=== PATIENT | female | born 1980 | race American Indian/Alaskan Native ===

== ENCOUNTER 2016-08-08 15:31 | Emergency (ER) | payer MEDICAID ==
[2016-08-08 16:23] VITALS: BP 117/73
== END 2016-08-08 17:59 | disposition home or self-care (01) ==
LOC: ED 15:31
DX: H93.8X2 Other specified disorders of left ear (principal)
CPT/HCPCS: 99282

== ENCOUNTER 2017-08-08 17:06 | Emergency (ER) | payer MEDICAID, OTHER ==
[2017-08-08 19:59] LABS: Hematocrit 37.2 % (30.3-42.9); Hemoglobin 11.9 gm/dl (10.1-14.3); Mean Corpuscular HGB Conc 32 % (30-34); Mean Corpuscular Hemoglobin 28 pg (28-32); Mean Corpuscular Volume 87 fl (79-97); Red Cell Distribution Width 16.7 % (13.2-15.2)
[2017-08-08 20:17] LABS: Platelet Count 208 K/mm3 (140-440)
[2017-08-08 21:32] LABS: Platelet Estimate Consistent w Auto; Total Cells Counted 100
[2017-08-08 23:14] LABS: Bilirubin,Urine NEG (Negative); Blood,Urine LG (Negative); Color,Urine Yellow (Yellow); Mucus,Urine 2+ /HPF; Protein,Urine <15 mg/dL mg/dL (Negative)
--- NOTE | 2017-08-08 23:55 | Ultrasound Report ---
FINAL REPORT PROCEDURE: US OB TRANSVAGINAL TECHNIQUE: Real-time transabdominal and transvaginal sonography of the uterus, placenta, amniotic fluid, adnexa, and fetus was performed with image documentation. Measurements were obtained to determine age/size. M-mode Doppler was used to document heartbeat. CPT 89566 and 07787 HISTORY: hcg > 100,000 vag bleeding, 8wk COMPARISON: No prior studies are available for comparison. FINDINGS: ADDITIONAL GESTATION: None. CRL: 37 mm, which corresponds to a gestational age of: 10 weeks, 4 days. Yolk Sac: Normal. Embryonic Cardiac Activity: 182 Gestational Sac: Small subchorionic bleed measures up to 31 millimeters Amniotic fluid: Normal. Cervix: Normal. Right Ovary: Small dominant cyst measures 21 millimeters Left Ovary: Small dominant cysts measures 26 millimeters Estimated delivery date: 03/02/2018 Uterus and adnexa: As above IMPRESSION: 1. Single live intrauterine gestation at approximately 10 weeks, 4 days. There is a small subchorionic bleed which measures up to 31 millimeters. 2. EDC by US 03/02/2018 3. Complete anatomic survey at 18-20 weeks suggested.
--- NOTE | 2017-08-08 23:56 | Ultrasound Report ---
FINAL REPORT PROCEDURE: US OB transabdominal and transvaginal TECHNIQUE: Real-time transabdominal and transvaginal sonography of the uterus, placenta, amniotic fluid, adnexa, and fetus was performed with image documentation. Measurements were obtained to determine age/size. M-mode Doppler was used to document heartbeat. CPT 95689 and 15855 HISTORY: hcg > 100,000 vag bleeding, 8wk COMPARISON: No prior studies are available for comparison. FINDINGS: ADDITIONAL GESTATION: None. CRL: 37 mm, which corresponds to a gestational age of: 10 weeks, 4 days. Yolk Sac: Normal. Embryonic Cardiac Activity: 182 Gestational Sac: Small subchorionic bleed measures up to 31 millimeters Amniotic fluid: Normal. Cervix: Normal. Right Ovary: Small dominant cyst measures 21 millimeters Left Ovary: Small dominant cysts measures 26 millimeters Estimated delivery date: 03/02/2018 Uterus and adnexa: As above IMPRESSION: 1. Single live intrauterine gestation at approximately 10 weeks, 4 days. There is a small subchorionic bleed which measures up to 31 millimeters. 2. EDC by US 03/02/2018 3. Complete anatomic survey at 18-20 weeks suggested.
--- NOTE | 2017-08-09 00:34 | Emergency Department Report ---
ED Female HPI - General Chief complaint: Vaginal Bleeding Stated complaint: POSS MISCARRIAGE Source: patient Mode of arrival: Ambulatory Limitations: No Limitations - History of Present Illness Initial comments: Patient is 36 years old female 5 para 2 with one miscarriage and one . Patient is 10 weeks . Presented to the ER complaining all pelvic pain and vaginal discharge started this morning after she had sex. Patient denied any chest pain or shortness of breath. She denied any abdominal injury or trauma. Patient also denied any fever or vomiting. MD Complaint: vaginal bleeding, pelvic pain - Related Data Previous Rx's Medication Instructions Recorded Last Taken Type Cephalexin [Keflex] 500 mg PO Q12HR #20 cap 08/08/16 Unknown Rx Ondansetron [Zofran Odt] 4 mg PO Q8HR PRN #14 tab.rapdis 08/09/17 Unknown Rx Allergies Allergy/AdvReac Type Severity Reaction Status Date / Time No Known Allergies Allergy Verified 09/17/15 04:59 ED Review of Systems ROS: Stated complaint: POSS MISCARRIAGE Other details as noted in HPI Comment: All other systems reviewed and negative Constitutional: denies: chills, fever Respiratory: denies: cough, orthopnea, shortness of breath, SOB with exertion, SOB at rest, wheezing Cardiovascular: denies: chest pain, palpitations, orthopnea Gastrointestinal: abdominal pain, nausea. denies: vomiting, diarrhea, constipation, hematemesis, melena, hematochezia Genitourinary: denies: urgency, dysuria, frequency, hematuria, abnormal menses, dyspareunia Neurological: denies: headache, weakness, numbness, paresthesias, confusion, abnormal gait ED Past Medical Hx - Past Medical History Hx Hypertension: No Hx Congestive Heart Failure: No Hx Diabetes: No Hx Deep Vein Thrombosis: No Hx Renal Disease: No Hx Sickle Cell Disease: No Hx Seizures: No Hx Asthma: No Hx COPD: No Hx HIV: No - Surgical History Past Surgical History?: Yes Additional Surgical History: D&C - Social History Smoking Status: Never Smoker Substance Use Type: None - Medications Home Medications: Home Medications Medication Instructions Recorded Confirmed Last Taken Type Cephalexin [Keflex] 500 mg PO Q12HR #20 cap 08/08/16 Unknown Rx Ondansetron [Zofran Odt] 4 mg PO Q8HR PRN #14 tab.rapdis 08/09/17 Unknown Rx ED Physical Exam - General Limitations: No Limitations General appearance: alert, in no apparent distress - Head Head exam: Present: atraumatic, normocephalic, normal inspection - Eye Eye exam: Present: normal appearance - ENT ENT exam: Present: normal exam, normal orophraynx, mucous membranes moist, TM's normal bilaterally - Neck Neck exam: Present: normal inspection, full ROM. Absent: tenderness, meningismus, lymphadenopathy, thyromegaly - Respiratory Respiratory exam: Present: normal lung sounds bilaterally. Absent: respiratory distress, wheezes, rales, rhonchi, stridor, accessory muscle use, decreased breath sounds, prolonged expiratory - Cardiovascular Cardiovascular Exam: Present: regular rate, normal rhythm, normal heart sounds - GI/Abdominal GI/Abdominal exam: Present: soft, normal bowel sounds. Absent: distended, tenderness, guarding, rebound, rigid - Extremities Exam Extremities exam: Present: normal inspection, full ROM, normal capillary refill. Absent: tenderness, pedal edema, calf tenderness - Back Exam Back exam: Present: normal inspection, full ROM. Absent: tenderness, CVA tenderness (R), CVA tenderness (L), muscle spasm, paraspinal tenderness, vertebral tenderness, rash noted - Neurological Exam Neurological exam: Present: alert, oriented X3, CN II-XII intact, normal gait - Skin Skin exam: Present: warm, intact, normal color. Absent: cyanosis, diaphoretic, erythema, urticaria ED Course Vital Signs 08/08/17 18:16 Temperature 98.6 F Pulse Rate 105 H Respiratory 18 Rate Blood Pressure 128/77 Blood Pressure 128/77 [Right] O2 Sat by Pulse 99 Oximetry ED Medical Decision Making - Lab Data Result diagrams: 08/08/17 19:27 - Radiology Data Radiology results: report reviewed Referring Physician: NITZA CRAFT Patient Name: DOT ROMO Date of : 1980 Sex: Female Report Date: 2017-08-08 Report Status: Finalized Findings [facility] [address] [place] [address] Ultrasound Report Signed Patient: DOT ROMO MR#: [id number] : 1980 Acct:[id number] Age/Sex: 36 / F ADM Date: 08/08/17 Loc: ED Attending Dr: Ordering Physician: SUDHA RAJAN Date of Service: 08/08/17 Procedure(s): US OB transvaginal Accession Number(s): [id number] cc: SUDHA RAJAN FINAL REPORT PROCEDURE: US OB TRANSVAGINAL TECHNIQUE: Real-time transabdominal and transvaginal sonography of the uterus, placenta, amniotic fluid, adnexa, and fetus was performed with image documentation. Measurements were obtained to determine age/size. M-mode Doppler was used to document heartbeat. CPT 65242 and 73607 HISTORY: hcg gt; 100,000 vag bleeding, 8wk COMPARISON: No prior studies are available for comparison. FINDINGS: ADDITIONAL GESTATION: None. CRL: 37 mm, which corresponds to a gestational age of: 10 weeks, 4 days. Yolk Sac: Normal. Embryonic Cardiac Activity: 182 Gestational Sac: Small subchorionic bleed measures up to 31 millimeters Amniotic fluid: Normal. Cervix: Normal. Right Ovary: Small dominant cyst measures 21 millimeters Left Ovary: Small dominant cysts measures 26 millimeters Estimated delivery date: 03/02/2018 Uterus and adnexa: As above IMPRESSION: 1. Single live intrauterine gestation at approximately 10 weeks, 4 days. There is a small subchorionic bleed which measures up to 31 millimeters. 2. EDC by US 03/02/2018 3. Complete anatomic survey at 18-20 weeks suggested. Transcribed By: [facility] Dictated By: DAVID MONTES MD Electronically Authenticated By: DAVID MONTES MD Signed Date/Time: 08/08/172350 DD/ 50 TD/TT: 08/08/172350 Critical care attestation.: If time is entered above; I have spent that time in minutes in the direct care of this critically ill patient, excluding procedure time. ED Disposition Clinical Impression: Abdominal pain affecting , Vaginal bleeding during , antepartum Disposition: DC-01 TO HOME OR SELFCARE Is pt being admited?: No Condition: Stable Instructions: Abdominal Pain in (ED) Prescriptions: Ondansetron [Zofran Odt] 4 mg PO Q8HR PRN #14 tab.rapdis PRN Reason: Nausea And Vomiting Referrals: DANIEL MACK MD [Primary Care Provider] - 3-5 Days Forms: Work/School Release Form(ED)
[2017-08-09 01:19] VITALS: BP 126/69
== END 2017-08-09 01:21 | disposition home or self-care (01) ==
LOC: ED 17:06
DX: O46.91 Antepartum hemorrhage, unspecified, first trimester (principal); R10.9 Unspecified abdominal pain; Z3A.10 10 weeks gestation of pregnancy
CPT/HCPCS: 36415; 76801; 76817; 81001; 84702; 85007; 85025; 86850; 86900; 86901

== ENCOUNTER 2018-05-29 10:14 | Emergency (ER) | payer OTHER ==
--- NOTE | 2018-05-29 11:42 | Emergency Department Report ---
ED Rash HPI - HPI Chief Complaint: Skin Rash Stated Complaint: RASH Time Seen by Provider: 05/29/18 11:07 Duration: 6days Location: Chest, Back, Upper Extremities Suspected Cause: Other (son at home with ringworm) Rash Symptoms: Yes Itching, No Facial Swelling, No Tongue/Oral Swelling, No Breathing Difficulties, No Choking Sensation, No Wheezing/Dyspnea, No Peeling, No Blistering, No Fever, No Lightheaded, No Malaise, No Myalgias Severity: mild Other History: Pt is a 37 yo female who presents to the ED with c/o a rash to the bilateral forearms, chest, and back. The patient states that her son had ringworm last week, and she believes she got it from him. She states the rash itches. She denies any fever or drainage. ED Review of Systems ROS: Stated complaint: RASH Other details as noted in HPI Comment: All other systems reviewed and negative ED Past Medical Hx - Past Medical History Previous Medical History?: No Hx Hypertension: No Hx Congestive Heart Failure: No Hx Diabetes: No Hx Deep Vein Thrombosis: No Hx Renal Disease: No Hx Sickle Cell Disease: No Hx Seizures: No Hx Asthma: No Hx COPD: No Hx HIV: No - Surgical History Additional Surgical History: D&C, fallopian tubes removed. - Social History Smoking Status: Never Smoker Substance Use Type: None - Medications Home Medications: Home Medications Medication Instructions Recorded Confirmed Last Taken Type Clotrimazole [Antifungal Ringworm] 14.2 gm TP BID #1 cream..g. 05/29/18 Unknown Rx Hydroxyzine HCl [hydrOXYzine] 25 mg PO TID PRN #20 tablet 05/29/18 Unknown Rx Rash Exam - Exam General: Vital signs noted. No distress. Alert and acting appropriately. HEENT: No Periorbital Edema, No Conjuctival Injection, No Chemosis, No Perioral Edema, No Tongue Edema, No Uvular Edema, No Compromised Airway, No Drooling Lungs: Yes Good Air Exchange Skin: Yes Other (small macules that are erythematous and scaling around the edges to the bilateral forearm, one present on the chest which appears to be resolving, and two present on the upper back appear to be resolving) ED Course Vital Signs 05/29/18 05/29/18 10:19 10:20 Temperature 98.2 F Pulse Rate 100 H Respiratory 16 Rate Blood Pressure 156/96 O2 Sat by Pulse 100 Oximetry ED Medical Decision Making - Medical Decision Making Pt with rash x6 days to forearm, chest, and upper back. Pts son had ringworm. Rash appears consistent with tinea corporis. Will give topical antifungal and hydroxyzine for itching. No signs of infection. - Differential Diagnosis Contact dermatitis, Ringworm, Allergic reaction Critical care attestation.: If time is entered above; I have spent that time in minutes in the direct care of this critically ill patient, excluding procedure time. ED Disposition Clinical Impression: Tinea corporis Disposition: DC-01 TO HOME OR SELFCARE Is pt being admited?: No Does the pt Need Aspirin: No Condition: Stable Instructions: Tinea Corporis (ED) Additional Instructions: Follow up with primary care doctor in the next 2-3 days. Use ointment on areas where ringworm is present. Use hydroxyzine as needed for itching. Prescriptions: Clotrimazole [Antifungal Ringworm] 14.2 gm TP BID #1 cream..g. Hydroxyzine HCl [hydrOXYzine] 25 mg PO TID PRN #20 tablet PRN Reason: Itching [facility] [Primary Care Provider] - 2-3 Days Time of Disposition: 11:46 Print Language: PERSIAN
== END 2018-05-29 11:58 | disposition home or self-care (01) ==
LOC: ED 10:14
DX: B35.4 Tinea corporis (principal)
CPT/HCPCS: 99282